=== PATIENT | male | born 1985 | race Caucasian/White ===

== ENCOUNTER → 2017-03-13 | Outpatient (CLI) | payer MEDICAID | END | disposition home health service (06) | LOC: LAB 17:40 | PROVIDERS: ATTEND Internal Medicine Gastroenterology | DX: K52.9 Noninfective gastroenteritis and colitis, unspecified (principal) ==

== ENCOUNTER → 2017-03-21 | Outpatient (CLI) | payer MEDICAID | END | disposition home or self-care (01) | LOC: LAB 13:45 | PROVIDERS: ATTEND Internal Medicine Gastroenterology | DX: K52.9 Noninfective gastroenteritis and colitis, unspecified (principal) | CPT/HCPCS: 87177 ==

== ENCOUNTER → 2017-03-27 | Outpatient (CLI) | payer MEDICAID | END | disposition home or self-care (01) | LOC: LAB 20:30 | PROVIDERS: ATTEND Internal Medicine Gastroenterology | DX: K52.9 Noninfective gastroenteritis and colitis, unspecified (principal) | CPT/HCPCS: 87177 ==

== ENCOUNTER 2017-04-02 13:14 | Emergency (ER) | payer MEDICAID ==
[~2017-04-02] VITALS: Ht 177.8 cm; Wt 80.0 kg
[2017-04-02 13:18] VITALS: Ht 177.8 cm; Wt 80.0 kg
[2017-04-02 16:02] VITALS: BP 124/65; PULSE 62; RESP 16; TEMP 97.9
--- NOTE | 2017-04-02 21:22 | ERD ---
ER Documentation Chief Complaint Date/Time DATE: 04/02/17 TIME: 21:17 Chief Complaint NEEDS MEDS FOR STRONGYLOIDS SAID HPI This is a 32-year-old male presenting to emergency department for medication information. Patient states he has had diarrhea for the past 5 weeks. Stools are nonbloody and nonbilious. 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 Patient states he went to several doctors and hospitals and was given a prescription for ivermectin. Patient states he was given this medication several weeks ago but did not take the medication. Patient states he finally took the medication this morning. Patient presents today to determine if this is the best course of action. Patient denies abdominal pain, nausea or vomiting. Patient states he had 2 episodes of nonbloody loose stools today. No melena. No fevers or chills. No recent travel outside the country. Patient has dogs at home and believes he may have contracted Strongyloides through them. ROS All systems reviewed and are negative except as per history of present illness. PMhx/Soc Medical and Surgical Hx: pt denies Medical Hx, pt denies Surgical Hx Hx Alcohol Use: No Hx Substance Use: No Hx Tobacco Use: No Smoking Status: Never smoker Physical Exam Vitals Vital Signs Date Time Temp Pulse Resp B/P Pulse Ox O2 Delivery O2 Flow Rate FiO2 04/02/17 16:02 97.9 62 16 124/65 99 Room Air 04/02/17 13:18 98.2 68 20 100/68 99 Physical Exam Const: Alert, [id number] Head: Atraumatic Eyes: Normal Conjunctiva ENT: Normal External Ears, Nose and Mouth. Neck: Full range of motion..~ No meningismus. Resp: Clear to auscultation bilaterally Cardio: Regular rate and rhythm, no murmurs Abd: Soft, non tender, non distended. Normal bowel sounds Skin: No petechiae or rashes Back: No midline or flank tenderness Ext: No cyanosis, or edema Neur: Awake and alert Psych: Normal Mood and Affect Procedures/MDM MDM: This is a 32-year-old male presenting to emergency department for medication information. Patient was diagnosed with Strongyloides by his primary care provider and was given a prescription for ivermectin by an ER physician at an outside facility. Patient states he has had diarrhea for the last 5 weeks and was unsure whether to take ivermectin for positive Strongyloides on laboratory tests. Patient brought paper copies of positive Strongyloides test that was done on 03/13/2017. Patient states he did not take ivermectin until today. Instructed patient that on most recent research if diarrhea is caused solely by Strongyloides that 1 dose of ivermectin is sufficient for treatment. Patient denies abdominal pain. No active vomiting or diarrhea while in the ED. Vital signs are stable. Patient remains afebrile. No back or flank pain. No dysuria, hematuria, urinary frequency or urinary urgency. Patient is alert and well appearing. Medical Decision making: Low suspicion for acute surgical abdomen, obstruction , peritonitis, acute cholangitis, acute cholecystitis or pancreatitis. Patient is appropriate for outpatient management and can follow up with their PCP in 2- 3 days. Patient instructed to return to ED sooner if pain worsens or is intolerable, high fever or new symptoms such as anorexia, not tolerating PO, severe diarrhea or chest pain. Patient verbalizes understanding. 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 FURTHER EVALUATION AND TREATMENT OF YOUR CONDITION CAN WAIT UNTIL YOU ARE SEEN IN YOUR DOCTORS OFFICE WITHIN THE NEXT 1-2 DAYS. IT IS YOUR RESPONSIBILITY TO MAKE AN APPOINTMENT FOR FOLOW-UP CARE. IF YOU HAVE A PRIMARY DOCTOR --you should call your primary doctor and schedule an appointment IF YOU DO NOT HAVE A PRIMARY DOCTOR YOU CAN CALL OUR PHYSICIAN REFERRAL HOTLINE AT IF YOU CAN NOT AFFORD TO SEE A PHYSICIAN YOU CAN CHOSE FROM THE FOLLOWING [facility] [address] [facility] [address] [facility] [address] [facility] [address] [facility] [address] [facility]. [facility]. [address] [facility]. [facility] YOU HAVE RECEIVED A MEDICAL SCREENING EXAM AND THE RESULTS INDICATE THAT YOU DO NOT HAVE A CONDITION THAT REQUIRES URGENT TREATMENT IN THE EMERGENCY DEPARTMENT. FURTHER EVALUATION AND TREATMENT OF YOUR CONDITION CAN WAIT UNTIL YOU ARE SEEN IN YOUR DOCTORS OFFICE WITHIN THE NEXT 1-2 DAYS. IT IS YOUR RESPONSIBILITY TO MAKE AN APPOINTMENT FOR FOLOW-UP CARE. IF YOU HAVE A PRIMARY DOCTOR --you should call your primary doctor and schedule and appointment IF YOU DO NOT HAVE A PRIMARY DOCTOR YOU CAN CALL OUR PHYSICIAN REFERRAL HOTLINE AT . IF YOU CAN NOT AFFORD TO SEE A PHYSICIAN YOU CAN CHOSE FROM THE FOLLOWING [facility] INSTITUTIONS: [facility] [address] [place] [address] [facility] [address] [place] [address] [facility] [address] [place] [address] Additional Instructions: Call your primary care doctor TOMORROW for an appointment during the next 2-3 days.See the doctor sooner or return here if your condition worsens before your appointment time. Return to ED for any high fever, chest pain, difficulty breathing, shortness breath, wheezing, vomiting, diarrhea, abdominal pain or any new or worsening symptoms. JENISE MEREDITH NP Apr 02, 2017 21:21
== END 2017-04-02 16:03 | disposition home or self-care (01) ==
LOC: FTE 13:14
DX: B78.9 Strongyloidiasis, unspecified (principal)
CPT/HCPCS: 99282